=== PATIENT | male | born 1970 | race Caucasian/White ===

== ENCOUNTER 2021-05-19 09:14 | Emergency (ER) | payer SELFPAY ==
[2021-05-19 09:19] VITALS: BP 179/110; PULSE 100; RESP 18; TEMP 36.8; O2SAT 98; BMI 29.8
--- NOTE | 2021-05-19 09:32 | ED_ITS ---
HPI - General Adult General: Chief complaint: Headache Stated complaint: high blood pressure nose bleed headache Time Seen by Provider: 05/19/21 09:25 History of Present Illness: Patient presents with hypertensive episode. No started bleeding today and is not bleeding presently. Patient has a headache. Patient was changed amlodipine this week by his primary care provider due to his hypertension. Patient has not tolerated this medication very well. Patient states he took metoprolol and has worked well for him for years but he got low on funds and quit taking it and we went to his PCP they went and changed to amlodipine because he was hypertensive at that time. Patient states he like get back on metoprolol at all possible. Patient also has clonidine take as needed but it is an old prescription and he did not take it this morning because a nurse at the clinic said he should not. MD complaint: Hypertension Onset (ago): year(s) Associated symptoms: Reports headache(s) and other (Nosebleed); Deny chest pain, dyspnea, nausea, rash or vomiting Review of Systems Const: Denies: fever(s), chills or body aches Eyes: Denies: eye discomfort ENMT: Reports: epistaxis; Denies: throat pain Card: Denies: chest pain Resp: Denies: dyspnea GI: Denies: abdominal pain, nausea or vomiting Skin/Breast: Denies: rash Neuro: Reports: headache(s) Psych: Denies: depression or suicidal ideation Physical Exam Const: COMMON NORMALS: no acute distress, patient oriented x3 and alert HENMT: COMMON NORMALS: normocephalic HEAD & SCALP: normocephalic OTHER: No active nosebleed occurring Eye: COMMON NORMALS: EOMs intact bilaterally Neck/C-Spine: COMMON NORMALS: no JVD Resp: COMMON NORMALS: normal respiratory effort and No use of accessory muscles Cardio: COMMON NORMALS: no JVD GI: INSPECTION: Yes normal to inspection Extremity: COMMON NORMALS: normal to inspection and full ROM Neuro: COMMON NORMALS: patient oriented x3 SENSORIUM/ORIENTATION: Yes alert Psych: COMMON NORMALS: mental status grossly normal Skin: COMMON NORMALS: no rashes or lesions noted GENERAL SKIN EXAM: no rashes or lesions noted Course Vital Signs: Vital signs: Vital Signs Temperature 98.2 F 05/19/21 09:19 Pulse Rate 100 05/19/21 09:19 Respiratory Rate 18 05/19/21 09:19 Blood Pressure 172/132 05/19/21 10:31 Pulse Oximetry 98 05/19/21 09:19 MDM - General Adult Medical Decision Making Patient presents with hypertensive episode. Patient had a recent change in medication placed amlodipine. Patient seen by his provider last week diagnosed with stage II chronic kidney disease due to diabetes. Patient's blood pressures been high since placed on amlodipine. Patient was well controlled with lisinopril and metoprolol. Patient desires to be back on metoprolol. Patient's headache gone and blood pressure back to normal after 0.3 mg clonidine. Patient is nose not bled since here. Chem-7 supports chronic kidney disease. Mild elevation in calcium. Patient was given prescription for metoprolol told to s top amlodipine follow-up with primary care provider with readings next week. Lab Data : 05/19/21 11:50 Laboratory Results Sodium 139 mmol/L (136-145) 05/19/21 11:50 Potassium 3.9 mmol/L (3.5-5.1) 05/19/21 11:50 Chloride 99 mmol/L (98-107) 05/19/21 11:50 Carbon Dioxide 29 mmol/L (22-29) 05/19/21 11:50 Anion Gap 14.9 (5-19) 05/19/21 11:50 BUN 25 mg/dL (6-20) H 05/19/21 11:50 Creatinine 2.0 mg/dL (0.7-1.2) H 05/19/21 11:50 GFR Calculation 35.5 mL/min (90-130) L 05/19/21 11:50 Glucose 154 mg/dL (65-115) H 05/19/21 11:50 Calculated Osmolality 295 mOsm/kg (285-295) 05/19/21 11:50 Calcium 10.6 mg/dL (8.5-10.5) H 05/19/21 11:50 Discharge Plan Discharge Patient Disposition: Home Clinical Impression: Headache, Benign essential HTN, Stage 2 chronic kidney disease due to type 2 d iabetes mellitus Condition: Stable Prescriptions: New metoprolol tartrate 50 mg tablet 50 mg PO BID Qty: 60 0RF Discontinued amlodipine 5 mg tablet 5 mg PO DAILY 0RF No Action Xigduo XR 5-500 mg tablet, IR - ER, biphasic 24hr 1 tab PO DAILY 0RF Vitamin C 1,000 mg Tablet 1,000 mg PO DAILY 0RF lisinopril-hydrochlorothiazide 20-12.5 mg tablet 2 tab PO DAILY 0RF ibuprofen 800 mg tablet 800 mg PO TID 0RF lovastatin 10 mg tablet 10 mg PO QPM 0RF lovastatin 20 mg tablet 20 mg PO BEDTIME 0RF Discharge Orders: Discharge ED (Routine); Ordered 05/19/21 Ordered By: Lloyd Pope Referrals: [facility] [Other] Discharge Diet: Usual diet Discharge Activity: Resume usual activity Patient Instructions: Chronic Hypertension (ED) Activity Restrictions/Additional Instructions: Follow-up with medical provider as directed. Take medications as prescribed. Return to the ER or your medical provider if condition worsens. Please read and understand discharge instructions. If any questions ask please. Check blood pr essure readings twice a day and report these back to your primary care provider. Coding Level of Care Code ED [employer] for [employer] Exam Comprehensive
[2021-05-19 09:52] VITALS: BP 178/121
[2021-05-19] MEDS: cloNIDine 0.1 mg Tablet 0.2 MG PO (09:52)
[2021-05-19 10:31] VITALS: BP 172/132
[2021-05-19] MEDS: cloNIDine 0.1 mg Tablet PO (10:31)
[2021-05-19 11:00] VITALS: BP 168/129; PULSE 98; O2SAT 97
[2021-05-19 12:00] VITALS: BP 127/98; PULSE 93; O2SAT 97
[2021-05-19 12:33] LABS: Anion Gap 14.9 (5-19); Blood Urea Nitrogen 25 mg/dL (6-20); Calcium 10.6 mg/dL (8.5-10.5); Carbon Dioxide 29 mmol/L (22-29); Chloride 99 mmol/L (98-107); Glomerular Filtration Rate 35.5 mL/min (90-130); Glucose 154 mg/dL (65-115); Osmolality Calculated 295 mOsm/kg (285-295); Potassium 3.9 mmol/L (3.5-5.1); Sodium 139 mmol/L (136-145)
[2021-05-19 13:00] VITALS: BP 118/83; PULSE 85; RESP 16; O2SAT 96
== END 2021-05-19 13:23 | disposition home or self-care (01) ==
PROVIDERS: Emergency Provider Nurse Practitioner Family
DX: R51.9 Headache, unspecified (principal); E11.22 Type 2 diabetes mellitus with diabetic chronic kidney disease; I12.9 Hypertensive chronic kidney disease with stage 1 through stage 4 chronic kidney disease, or unspecified chronic kidney disease; N18.2 Chronic kidney disease, stage 2 (mild)
CPT/HCPCS: 80048; 99283